=== PATIENT | female | born 1940 | race Caucasian/White ===

== ENCOUNTER 2017-02-01 11:56 | Day surgery (SDC) | payer OTHER ==
[~2017-02-01] VITALS: Ht 152.4 cm; Wt 59.9 kg
[2017-02-01] MEDS ORDERED: IOHEXOL 350 MG/ML 100 ML BTL (for Cath Lab) OTHER ONE (11:57)
[2017-02-01 12:50] VITALS: BP 196/79; PULSE 80; RESP 18; TEMP 98.8; O2SAT 92
[2017-02-01] MEDS ORDERED: EYEDRO EACH EYE (13:12)
[2017-02-01] MEDS ORDERED: LACTCAP8 PO (13:12)
[2017-02-01] MEDS ORDERED: TIZA4TAB PO (13:12)
[2017-02-01] MEDS ORDERED: MULTTAB67 PO (13:12)
[2017-02-01] MEDS ORDERED: CLON0.5T PO (13:12)
[2017-02-01] MEDS ORDERED: NITR0.4S SL (13:12)
[2017-02-01] MEDS ORDERED: GABA300C5 PO (13:12)
[2017-02-01] MEDS ORDERED: METO50TA PO (13:12)
[2017-02-01] MEDS ORDERED: BECL80AE3 INH (13:12)
[2017-02-01] MEDS ORDERED: PLAV75TA29 PO (13:12)
[2017-02-01] MEDS ORDERED: VITA500T4 PO (13:12)
[2017-02-01] MEDS ORDERED: VITA100036 PO (13:12)
[2017-02-01] MEDS ORDERED: DOXY1CAP74 PO (13:12)
[2017-02-01] MEDS ORDERED: ATOR1TAB18 PO (13:12)
[2017-02-01] MEDS ORDERED: SPIR25TA PO (13:12)
[2017-02-01] MEDS ORDERED: VENL75TA PO (13:12)
[2017-02-01] MEDS ORDERED: FENT50DI T-DERMAL (13:12)
[2017-02-01] MEDS ORDERED: ISOS30TA3 PO (13:12)
[2017-02-01] MEDS ORDERED: RANO500 PO (13:12)
[2017-02-01] MEDS ORDERED: PRED5TAB PO (13:12)
[2017-02-01] MEDS ORDERED: ESTR42.5V VAGINAL (13:12)
[2017-02-01] MEDS ORDERED: ASPI81TA5 PO (13:12)
[2017-02-01] MEDS ORDERED: LEFL20TA11 PO (13:12)
[2017-02-01] MEDS ORDERED: OXYC1CAP PO (13:12)
[2017-02-01] MEDS ORDERED: OCUVTAB PO (13:12)
[2017-02-01 13:13] LABS: AUTOMATED NEUTROPHIL # 7.9 TH/MM3 (1.8-7.7); BASOPHIL % 0.2 % (0.0-2.0); EOSINOPHIL % 0.5 % (0.0-4.0); HEMATOCRIT 35.5 % (35.0-46.0); HEMOGLOBIN 11.8 GM/DL (11.6-15.3); LYMPH % 7.7 % (9.0-44.0); LYMPHOCYTE # 0.7 TH/MM3 (1.0-4.8); MEAN CELL VOLUME 100.6 FL (80.0-100.0); MEAN CORPUSCULAR HEMOGLOBIN 33.5 PG (27.0-34.0); MEAN CORPUSCULAR HGB CONC 33.3 % (32.0-36.0); NEUT % 81.6 % (16.0-70.0); PLATELET COUNT 204 TH/MM3 (150-450); RED BLOOD COUNT 3.53 MIL/MM3 (4.00-5.30); RED CELL DISTRIBUTION WIDTH 15.1 % (11.6-17.2); WHITE BLOOD COUNT 9.6 TH/MM3 (4.0-11.0)
[2017-02-01 13:23] LABS: PROTHROMBIN TIME - PATIENT 11.3 SEC (9.8-11.6)
[2017-02-01 13:24] LABS: BICARBONATE 28.2 MEQ/L (21.0-32.0); CALCIUM 8.7 MG/DL (8.5-10.1); CREATININE 1.13 MG/DL (0.50-1.00)
[2017-02-01] MEDS ORDERED: NS 1000P @30 MLS/HR (KVO) IV SCH (13:30)
[2017-02-01] MEDS ORDERED: diphenhydrAMINE HCL 50 MG CAP PO SCH (13:30)
[2017-02-01] MEDS ORDERED: HEPARIN-NS/PF INJ 1,000 ML ONE (14:48)
[2017-02-01] MEDS ORDERED: MIDAZOLAM HCL 2 MG/2 ML VIAL ONE ×2 (14:49→16:57)
[2017-02-01] MEDS ORDERED: VERAPAMIL HCL 5 MG/2 ML VIAL ONE (14:49)
[2017-02-01] MEDS ORDERED: HEPARIN SODIUM - IV 10,000 UNITS/10 ML VIAL ONE (14:49)
[2017-02-01] MEDS ORDERED: NITROGLYCERIN INJ 0 ML ONE (14:50)
[2017-02-01] MEDS ORDERED: SODIUM CHLOR 0.9% 1000 ML INJ 1,000 ML IV SCH (16:34)
[2017-02-01] MEDS ORDERED: ATROPINE SULFATE 1 MG/ML VIAL IV PUSH PRN (16:45)
[2017-02-01] MEDS ORDERED: ONDANSETRON HCL 4 MG/2 ML VIAL IV PUSH PRN (16:45)
[2017-02-01] MEDS ORDERED: MISC INFORMATION XX ONE (16:45)
--- NOTE | 2017-02-01 17:21 | MA ---
cc: BAZANMannieMILAKURT Jonas DATE 02/01/2017 DATE OF 1940 PROCEDURES PERFORMED 1. Left heart catheterization. 2. Selective right and left coronary angiography. 3. Saphenous vein graft and YOUNGBLOOD angiography. 4. Left ventriculogram. 5. Left common femoral artery selective angiography. INDICATION Angina. Known coronary artery disease status post two vessel bypass. PROCEDURE DESCRIPTION Consent signed. The patient was prepped and draped in the usual sterile fashion. Using 1% lidocaine for local anesthesia and a micropuncture kit a 5 [place] sheath was inserted through the left common femoral artery. The left common femoral artery angiography was performed to confirm position of the sheath. Then selective right and left coronary angiography was performed with a JR-4 and a JL-4 diagnostic catheters. Angiography was taken in multiple views and the JR-4 diagnostic catheter was introduced to the ventricle over a wire. This was followed by pressure recordings, left ventriculogram and pullback. The saphenous vein grafts were engaged with a JR-4 diagnostic catheter. Angiography was performed in multiple views. The patient tolerated the procedure without complications. Estimated blood loss less than 20 cc. Total contrast 80 cc. The left groin access site was closed with VASCADE closure device. RESULTS Left ventricle. The left ventricular pressure was 245/9 with an elevated LVEDP of 12. The aortic pressure was 242/86 with an mean ____ pressure 156. There was no gradient upon pullback from the left ventricle to aorta. Left ventriculogram revealed a symmetrically edgar ventricle with an estimated ejection fraction of 45%. ANGIOGRAPHY 1. Right coronary artery. The right coronary artery is small and 100% occluded in its mid segment. It has a stent in its proximal segment with a in stent restenosis. The right coronary artery seemed to be a dominant vessel giving off circulation to the PDA. It is also giving RV branch. Right after the RV branch there is indeed a chronic total occlusion. 2. Left main is short and patent. It is giving off the left circumflex artery, the LAD and a small ramus vessel. 3. LAD. The LAD is a transapical vessel. It has a 70% proximal lesion and is completely occluded after that. It has been filling by coming from the YOUNGBLOOD. 4. The left circumflex artery has minimal luminal irregularities throughout and calcifications, however, patent. It is giving off two diagonal vessels and also circulation to the PDA. The first OM which is completely occluded right at the level of the stents. 5. Graft angiography. The YOUNGBLOOD to the LAD is patent. The SVG to OM is occluded. CONCLUSIONS Severe [place] vessel coronary artery disease with one of two grafts patent, the YOUNGBLOOD to the LAD. She does have severe [place] vessel coronary artery disease with a total occlusion of the right coronary artery and disease of two marginal branches of the circumflex. At this point I would opt with optimization of medical therapy. I will follow with cardiology. If the patient continues having chest pain symptoms, consider doing a stress test to further assess where she is getting the ischemia. If possible CT of the right coronary artery can be planned. RECOMMENDATIONS The patient will be going to the [facility] for post cath care. She will continue home medications and follow with Dr. Lu. The patient, if stable, after bed rest, she will be able to go home today. MD LISHA Dash/SUSAN /4:29 PM /4:36 PM
--- NOTE | 2017-02-01 17:23 | CATHPROC ---
[facility] HIS Report Study Information Study Number Admission Scheduled Start Study Start [id number] Feb 01 2017 11:56AM 02/01/2017 Feb 01 2017 3:31PM [facility] [facility] Cardiac Catheterization Admit Source Facility Department Other [facility] - [facility] Administrator Physician and Clinical Staff Initial MD Leonard, Fabricio International Controller Roxana Mac BSRArya Recorder Eduarda Angela,RT(R) Scrub Alex, Hortensia,EMBOSSING MACHINE OPERATOR TECH2 Procedures Performed Procedure Location (Site) Vessel Name Coronary Angiograms LCA Left Coronary Coronary Angiograms RCA Right Coronary Coronary Angiograms YOUNGBLOOD-LAD Left Coronary L Heart Cath LV Gram-hand inj. LV LV Ventricle Wire insertion Fem Art (left) Femoral Art Wire insertion Fem Art (right) Femoral Art Equipment Time Food Porter Description Size Mfg Part Number Used/Scraped TRANSDUCER, TRUWAVE [id number] 15:52 KELLER COOPER * Used W/BEN *[id number] 16:23 [address] MEDICAL VASCADE, FR5 CLOSURE SYSTEM FR 5 Used *[id number] INTRODUCER SET, 15:52 [employer] FR 5 [id number] *[id number] Used MICROPUNCTURE, STIFFENED [id number] *[id number] [id number] *[id number] [id number] *[id number] [id number] *[id number] WIRE, HYDROSTEER 150CM [id number] 16:02 DAIG[employer]. [employer] 150CM Used ANGLED GLIDE *[id number] 15:52 [employer] INDUSTRIES PACK, CCL CUSTOM * Used *[id number] 15:52 [employer] MEDICAL WIRE, 3MMJ .035 180CM 180CM Used *[id number] 15:52 [facility], 4 PORT * Used *[id number] 16:11 [employer] OMNIPAQUE, 350 MG, 150ML 150ML [id number] Used 15:52 [employer] OMNIPAQUE, 350 MG, 150ML 150ML [id number] Used [id number] 15:52 [employer]ARC[employer] MEDICAL BLANKET,WARM AIR CCL * Used *[id number] 15:52 [employer] MEDICAL SHEATH, FR5 TERUMO (10CM) FR 5 Used *[id number] History: Current Medications Medication Dosage/Unit Route Frequency Last Date/Time Taken ASA Statins (any) LOPRESSOR PLAVIX PREDNISONE History: Allergies Allergy Reaction Sulfa (Sulfonamide Antibiotics) History: Risk Factors Family History of Dyslipidemia Premature CAD Yes Yes Prior Valve Prior PCI Prior PCIDate Prior CABG Prior CABGDate Surgery No Yes 04/04/2002 Yes 04/04/2008 Chronic Lung Diabetes Disease Yes Yes History: Stress Tests Stress or Imaging Studies Performed No History: Other Disease Selection Items CAD COPD HTN History: MA/CV Data Previous Cath Date Previous CABG Date 04/04/2002 04/04/2008 History: Other Current Smoker Method Quit Packs a Day Years Used Pack Years No Cigarettes 1 Years Ago 1 40 40 Labs Hgb (g/dl) Hct (%) RBC (MIL/MM3) WBC (l/cumm) Platelets (thousands) 11.60-17.00 35.00-51.00 4.00-5.90 4.00-11.00 150.00-450.00 11.8 35.5 3.5 9.6 204 Glucose (mg/dl) BUN (mg/dl) Creatinine (mg/dl) BUN:Creatinine (1:x) 74.00-106.00 7.00-18.00 0.50-1.30 10.00-20.00 97 25 1.1 22.7 Na (meq/l) K (meq/l) Cl (meq/l) CO2 (mmol/L) Ca (mg/dl) 136.00-145.00 3.50-5.10 98.00-107.00 21.00-32.00 8.50-10.10 140 4.4 103 28.2 8.7 PT (sec) PTT (sec) INR (PTT:PT) 9.80-11.60 24.30-30.10 0.90-1.10 11.3 25.7 1 CPK-MB (ng/ML) 0.50-3.60 Not Drawn Medication Medication Total Dose (Bolus/Oral) Medication Total Dosage/Unit 1% XYLOCAINE 20 mL VERSED 0.5 mg Medications (Bolus/Oral) Medication Time Given Dosage/Unit Administered By Reason 1% XYLOCAINE 02/01/2017 3:49:23 PM 20 mL Fabricio Leonard 20 mL 1% XYLOCAINE given in lab by Fabricio Leonard in Left Groin via Subcutaneous. VERSED 02/01/2017 4:58:31 PM 0.5 mg Juárez-Cindy, Fabricio As per physicians verbal order 0.5 mg VERSED given in lab by Juárez-Cindy, Fabricio in Left Antecubital via Peripheral IV. Reason: As per physicians verbal order. Medication (Drip) Medication Time Given Dosage/Unit Concentration/Unit Diluent (ml) Solution IV Solutions 02/01/2017 3:35:01 PM 0 mL (IV) 500 NaCl .9 Patient arrived on IV Solutions in Left Antecubital via Peripheral IV. Pump/Drip Flow = 20 ml/hr usin g NaCl .9. Initial Case Assessment Cardiovascular HR Rhythm NIBP Chest Pain 93 reg 213/93 0 Edema Present Skin color Skin None Normal Warm Circulatory - Right Pulses Dorsalis Pedis Femoral 3 2 Scale (0,1,2,3,4,d) Circulatory - Left Pulses Dorsalis Pedis Femoral 3 3 Scale (0,1,2,3,4,d) Circulatory - Lower Extremities Color Lower Right Color Lower Left Normal Normal Neurological State Oriented to time-place- Alert Moves all extremities person Respiration - General Respiration Rate SpO2 (%) O2 (lpm) (B/min) 17 98 2 Final Case Assessment Cardiovascular HR Rhythm NIBP Chest Pain 87 reg 194/81 0 Edema Present Skin color Skin None Normal Warm Circulatory - Right Pulses Dorsalis Pedis Femoral 2 3 Scale (0,1,2,3,4,d) Circulatory - Left Pulses Dorsalis Pedis Femoral 2 2 Scale (0,1,2,3,4,d) Circulatory - Lower Extremities Color Lower Right Color Lower Left Normal Normal Neurological State Oriented to time-place- Alert Moves all extremities person Respiration - General Respiration Rate SpO2 (%) O2 (lpm) (B/min) 18 95 2 Chronological Log Time Study Chronological Log 15:20:51 Patient arrived via Bed. 15:21:56 Patient Name, D.O.B, / Armband Verified By R.N. 15:22:10 Consent signed by the physician and the patient and verified by the Net[employer] Administrator staff. 15:23:07 Pre-op and post- op instructions given; patient acknowledges understanding of instructions. 15:24:12 Verbal Stimulation=2 Physical Stimulation=2 Airway=2 Respiration=2 TOTAL=8. (0=absent, 1=li mited, 2=present) 15:26:19 Patient has been NPO for More than 6Hrs. 15:33:24 Skin Breakdown-0 15:33:34 Reference ECG taken Vitals capture started with the following parameters, Patient=Adult, Interval=2 min, Initial Pr ckejnn=871 mmHg, 15:33:36 Deflation Rate=5 mmHg, Cuff placed on right Arm 15:34:48 Patient Warmer Placed on the Table. 15:34:53 A # 20 IV was noted in the Antecubital (left). Grade = 0 15:35:01 Patient arrived on IV Solutions in Left Antecubital via Peripheral IV. Pump/Drip Flow = 20 ml/hr using NaCl .9. 15:35:21 History and physical on the chart or being dictated. Assessment: Initial Case, HR=93 BPM, Rhythm=reg, QNAC=066/93 mmhg, Chest Pain=0, Edema=None, Co eric=Normal, Skin = Warm Right Pulses: Hilario Ped=3, Femoral=2 Left Pulses: Hilario Ped=3, Femoral=3 15:35:24 Lower Right Extremities: Color=Normal Lower Left Extremities: Color=Normal Neurological: State=Alert, Ox3, KABA Respiration: Resp=17 B/min, SpO2=98 %, O2=2 lpm 15:35:30 HR=92 bpm, VJAD=721/93 mmhg, SpO2=97.0 %, Resp=15 B/min, Pain=0, Sophie=10, Gentile=2 15:35:57 NIBP STAT measurement started. 15:36:08 Pressure channel 1 zeroed. 15:36:46 HR=88 bpm, LDST=106/80 mmhg, SpO2=98.0 %, Resp=17 B/min, Pain=0, Sophie=10, Gentile=2 15:38:51 HR=87 bpm, UMFS=311/71 mmhg, SpO2=99.0 %, Resp=17 B/min, Pain=0, Sophie=10, Gentile=2 15:39:27 pt arrives with a fentanyl patch on right shoulder- 50 mcg 15:40:25 HR=88 bpm, TZCR=983/74 mmhg, SpO2=98.0 %, Resp=18 B/min, Pain=0, Sophie=10, Gentile=2 15:41:10 MD arrived. 15:41:14 Bilateral groins prepped with 2% chlorhexidine, and draped after a 3 minute waiting time. 15:42:26 HR=84 bpm, ZDJU=043/69 mmhg, SpO2=98.0 %, Resp=18 B/min, Pain=0, Sophie=10, Gentile=2 15:44:27 HR=83 bpm, PXQO=400/68 mmhg, SpO2=97.0 %, Resp=18 B/min, Pain=0, Sophie=10, Gentile=2 15:46:27 HR=81 bpm, OXXY=953/64 mmhg, SpO2=96.0 %, Resp=18 B/min, Pain=0, Sophie=10, Gentile=2 Time Out. Correct patient, correct procedure, correct physician, power injector not loaded with contrast with surgical 15:47:54 team present. Time Out Concurred by MD and individual staff in procedure. 15:48:16 Case Start 15:48:24 HR=87 bpm, OJSR=310/77 mmhg, SpO2=98.0 %, Resp=19 B/min, Pain=0, Sophie=10, Gentile=2 15:49:15 Verbal Stimulation=2 Physical Stimulation=2 Airway=2 Respiration=2 TOTAL=8. (0=absent, 1=li mited, 2=present) 15:49:23 20 mL 1% XYLOCAINE given in lab by Fabricio Leonard in Left Groin via Subcutaneous. 15:50:25 HR=86 bpm, LNMR=428/77 mmhg, SpO2=98.0 %, Resp=17 B/min, Pain=0, Sophie=10, Gentile=2 15:51:43 Access site was Left Femoral Artery. MP kit 15:51:58 A wire was inserted via Fem Art (right). 15:52:01 A SHEATH, FR5 TERUMO (10CM) FR 5 was advanced into the Fem Art (right) using the [place] us technique. 15:52:28 HR=86 bpm, LGAG=493/75 mmhg, SpO2=97.0 %, Resp=15 B/min, Pain=0, Sophie=10, Gentile=2 15:53:24 An injection in the Fem Art (right) was made through the SHEATH, FR5 TERUMO (10CM) FR 5. A JL 4.0 INFINITI CATHETER FR 5 was advanced over a wire. OMNIPAQUE, 350 MG, 150ML 150ML was us ed for 15:54:27 injections. Recorded Pressure: LV, HR=86, Condition=Condition 1 15:54:59 (Left Ventricle) LV 249/6/14 15:55:21 The LV was manually injected with 10 cc's and visualized. OMNIPAQUE, 350 MG, 150ML 150ML us ed. Recorded Pressure: LV, Ao, HR=90, Condition=Condition 1 15:55:34 (Left Ventricle) LV 245/9/12, (Aorta) Ao 240/75/147 15:55:55 HR=88 bpm, HRLX=376/84 mmhg, SpO2=97.0 %, Resp=20 B/min, Pain=0, Sophie=10, Gentile=2 15:56:02 The RCA was injected and visualized at various angles. OMNIPAQUE, 350 MG, 150ML 150ML used . Recorded Pressure: Ao, HR=96, Condition=Condition 1 15:56:11 (Aorta) Ao 242/86/156 15:57:13 HR=90 bpm, OLEZ=617/78 mmhg, SpO2=96.0 %, Resp=27 B/min, Pain=0, Sophie=10, Gentile=2 15:58:39 HR=88 bpm, QPZQ=507/77 mmhg, SpO2=96.0 %, Resp=15 B/min, Pain=0, Sophie=10, Gentile=2 16:00:44 HR=88 bpm, CMVX=362/72 mmhg, SpO2=95.0 %, Resp=18 B/min, Pain=0, Sophie=10, Gentile=2 16:00:47 A WIRE, 3MMJ .035 180CM 180CM was inserted via Fem Art (left). 16:01:34 The previous wire was exchanged for a WIRE, HYDROSTEER 150CM ANGLED GLIDE 150CM. 16:02:42 HR=87 bpm, HSYO=677/68 mmhg, SpO2=96.0 %, Resp=19 B/min, Pain=0, Sophie=10, Gentile=2 16:03:52 glide Wire removed 16:04:56 The YOUNGBLOOD-LAD was injected and visualized at various angles. OMNIPAQUE, 350 MG, 150ML 150ML used. 16:05:20 HR=84 bpm, LRVZ=512/77 mmhg, SpO2=97.0 %, Resp=17 B/min, Pain=0, Sophie=10, Gentile=2 16:06:10 Vitals capture stopped. Vitals capture started with the following parameters, Patient=Adult, Interval=2 min, Initial Pr pwtwdf=226 mmHg, 16:07:27 Deflation Rate=5 mmHg, Cuff placed on Left Arm 16:08:12 HR=90 bpm, QJYP=470/89 mmhg, SpO2=96.0 %, Resp=19 B/min, Pain=0, Sophie=10, Gentile=2 16:08:17 NIBP STAT measurement started. 16:08:34 The YOUNGBLOOD-LAD was injected and visualized at various angles. OMNIPAQUE, 350 MG, 150ML 150ML used. 16:08:45 A WIRE, 3MMJ .035 180CM 180CM was inserted via Fem Art (left). After removing the current catheter a JL 4.0 INFINITI CATHETER FR 5 was advanced over a WIRE, 3 MMJ .035 180CM 16:08:55 180CM. 16:08:57 HR=92 bpm, IZOK=057/92 mmhg, SpO2=94.0 %, Resp=27 B/min, Pain=0, Sophie=10, Gentile=2 16:10:13 HR=91 bpm, HOVS=752/81 mmhg, SpO2=93.0 %, Resp=20 B/min, Pain=0, Sophie=10, Gentile=2 16:10:21 The LCA was injected and visualized at various angles. OMNIPAQUE, 350 MG, 150ML 150ML used . 16:12:12 HR=96 bpm, OLBQ=170/82 mmhg, SpO2=94.0 %, Resp=23 B/min, Pain=0, Sophie=10, Gentile=2 After removing the current catheter a MPA-2 INFINITI CATHETER FR 5 was advanced over a WIRE, 3M MJ .035 180CM 16:12:23 180CM. 16:14:13 HR=92 bpm, YGKB=527/79 mmhg, SpO2=93.0 %, Resp=20 B/min, Pain=0, Sophie=10, Gentile=2 After removing the current catheter a AL 1 INFINITI CATHETER FR 5 was advanced over a WIRE, 3MM J .035 180CM 16:14:32 180CM. 16:16:13 HR=88 bpm, AHJQ=036/79 mmhg, SpO2=94.0 %, Resp=17 B/min, Pain=0, Sophie=10, Gentile=2 16:17:45 Catheter was removed 16:18:14 HR=90 bpm, WARO=175/72 mmhg, SpO2=93.0 %, Resp=18 B/min, Pain=0, Sophie=10, Gentile=2 16:20:13 HR=88 bpm, EIFL=822/80 mmhg, SpO2=93.0 %, Resp=19 B/min, Pain=0, Sophie=10, Gentile=2 16:21:38 Case End Assessment: Final Case, HR=87 BPM, Rhythm=reg, IBLW=992/81 mmhg, Chest Pain=0, Edema=None, [place] r=Normal, Skin = Warm Right Pulses: Hilario Ped=2, Femoral=3 Left Pulses: Hilario Ped=2, Femoral=2 16:21:46 Lower Right Extremities: Color=Normal Lower Left Extremities: Color=Normal Neurological: State=Alert, Ox3, KABA Respiration: Resp=18 B/min, SpO2=95 %, O2=2 lpm 16:22:16 HR=88 bpm, ODHS=648/81 mmhg, SpO2=93.0 %, Resp=20 B/min, Pain=0, Sophie=10, Gentile=2 16:22:32 Catheter(s) removed without difficulty 16:22:35 VASCADE, FR5 CLOSURE SYSTEM FR 5 placement in the Fem Art (left) 16:22:49 No case complications noted. 16:22:51 Cine recording checked. 16:22:52 Bedside Report will be given. 16:22:55 Contrast Scanned 16:22:57 A Left Heart Cath was performed. 16:23:03 Clinical correlaton risk stratification. 16:24:11 HR=90 bpm, OLDR=428/79 mmhg, SpO2=93.0 %, Resp=19 B/min, Pain=0, Sophie=10, Gentile=2 16:26:09 HR=89 bpm, SXOM=092/76 mmhg, SpO2=92.0 %, Resp=19 B/min, Pain=0, Sophie=10, Gentile=2 16:28:10 HR=89 bpm, EJUN=051/83 mmhg, SpO2=90.0 %, Resp=19 B/min, Pain=0, Sophie=10, Gentile=2 16:28:50 Hematoma noted Left groin, applying pressure. 16:30:09 HR=92 bpm, DOZY=962/86 mmhg, SpO2=91.0 %, Resp=14 B/min, Pain=0, Sophie=10, Gentile=2 16:32:08 HR=97 bpm, PCRS=039/97 mmhg, SpO2=90.0 %, Resp=15 B/min, Pain=0, Sophie=10, Gentile=2 16:34:11 HR=93 bpm, XZVC=852/95 mmhg, SpO2=89.0 %, Resp=20 B/min, Pain=0, Sophie=10, Gentile=2 16:36:16 HR=91 bpm, VZVL=243/87 mmhg, SpO2=90.0 %, Resp=17 B/min, Pain=0, Sophie=10, Gentile=2 16:38:19 HR=93 bpm, AJBZ=425/85 mmhg, SpO2=88.0 %, Resp=20 B/min, Pain=0, Sophie=10, Gentile=2 16:40:15 HR=99 bpm, ILFI=381/75 mmhg, SpO2=90.0 %, Resp=17 B/min, Pain=0, Sophie=10, Gentile=2 16:42:12 FV=268 bpm, WFNR=621/108 mmhg, SpO2=93.0 %, Resp=18 B/min, Pain=0, Sophie=10, Gentile=2 16:44:11 UD=854 bpm, JZUG=135/103 mmhg, SpO2=93.0 %, Resp=16 B/min, Pain=0, Sophie=10, Gentile=2 Vitals capture started with the following parameters, Patient=Adult, Interval=2 min, Initial Pr zzlydd=182 mmHg, 16:45:37 Deflation Rate=5 mmHg, Cuff placed on Left Arm 16:46:18 XT=558 bpm, XFCM=609/90 mmhg, SpO2=93.0 %, Resp=16 B/min, Pain=0, Sophie=10, Gentile=2 16:48:19 CC=099 bpm, QKND=749/74 mmhg, SpO2=92.0 %, Resp=18 B/min, Pain=0, Sophie=10, Gentile=2 16:50:15 QZ=989 bpm, GCII=066/56 mmhg, SpO2=89.0 %, Resp=20 B/min, Pain=0, Sophie=10, Gentile=2 16:52:08 YC=132 bpm, VWTG=907/62 mmhg, SpO2=91.0 %, Resp=21 B/min, Pain=0, Sophie=10, Gentile=2 16:54:11 YT=888 bpm, TQDF=766/44 mmhg, SpO2=93.0 %, Resp=21 B/min, Pain=0, Sophie=10, Gentile=2 16:56:08 RL=498 bpm, TTNU=152/69 mmhg, SpO2=92.0 %, Resp=13 B/min, Pain=0, Sophie=10, Gentile=2 0.5 mg VERSED given in lab by Fabricio Leonard in Left Antecubital via Peripheral IV. Reason: As per physicians 16:58:31 verbal order. 16:58:45 MF=771 bpm, NTWE=264/60 mmhg, SpO2=96.0 %, Resp=13 B/min, Pain=0, Sophie=10, Gentile=2 17:00:13 YJ=971 bpm, WIWO=528/61 mmhg, SpO2=96.0 %, Resp=21 B/min, Pain=0, Sophie=10, Gentile=2 17:02:14 DU=576 bpm, AJIP=878/72 mmhg, SpO2=95.0 %, Resp=19 B/min, Pain=0, Sophie=10, Gentile=2 17:04:13 DR=618 bpm, XSSB=502/57 mmhg, SpO2=95.0 %, Resp=26 B/min, Pain=0, Sophie=10, Gentile=2 17:04:13 ultrasound LLE 17:06:14 FF=212 bpm, NIBP=95/54 mmhg, SpO2=95.0 %, Resp=17 B/min, Pain=0, Sophie=10, Gentile=2 17:09:47 HY=643 bpm, UQXU=088/72 mmhg, SpO2=96.0 %, Resp=21 B/min 17:10:40 Dr. Juárez examining pt. 17:11:21 QK=193 bpm, JOAN=486/68 mmhg, SpO2=96.0 %, Resp=21 B/min 17:12:30 NIBP STAT measurement started. 17:13:08 BF=234 bpm, NJDD=238/40 mmhg, Resp=20 B/min 17:13:10 Vitals capture stopped. Vitals capture started with the following parameters, Patient=Adult, Interval=2 min, Initial Pr tgkmqj=426 mmHg, 17:15:34 Deflation Rate=5 mmHg, Cuff placed on Left Arm 17:16:08 ZO=182 bpm, AGWV=998/72 mmhg, SpO2=94.0 %, Resp=16 B/min 17:18:11 KG=889 bpm, TGGF=559/77 mmhg, SpO2=96.0 %, Resp=17 B/min, Pain=0, Sophie=10, Gentile=2 17:20:16 HR=99 bpm, WYJK=139/63 mmhg, SpO2=83.0 %, Resp=22 B/min, Pain=0, Sophie=10, Gentile=2 17:22:49 HR=98 bpm, EYLG=569/74 mmhg, Resp=20 B/min, Pain=0, Sophie=10, Gentile=2 17:23:14 Vitals capture stopped. 17:23:14 [facility] 17[facility] pt transported to room End Study - Contrast Media Used In Study Contrast Total Opened (mL) Total Used (mL) Total Wasted (mL) Omnipaque 80 80 0 End Study - Maximum Contrast Load Max Contrast Load (mL) 272.3 End Study - Radiation Exposure Fluoro Time (minutes) 13.8 End Study - Sheaths Sheaths Pulled By Sheath Hold Time (min) Hortensia Johnson 5 End Study - Patient Disposition Complications Transferred To Interventional Outcome No Outpatient Bed No attempt made
--- NOTE | 2017-02-01 17:23 | CATHPROC ---
[employer] HIS Report Study Information Study Number Admission Scheduled Start Study Start [id number] Feb 01 2017 11:56AM 02/01/2017 Feb 01 2017 3:31PM [place] Service Cardiac Catheterization Admit Source Facility Department Other [facility] - Inventory Control Associate Physician and Clinical Staff Initial MD Leonard, Fabricio Electronic Equipment Installer Roxana Mac BSRArya Recorder Eduarda Angela,RT(R) Scrub Alex, Hortensia,FUNERAL HOME ASSISTANT TECH2 Procedures Performed Procedure Location (Site) Vessel Name Coronary Angiograms LCA Left Coronary Coronary Angiograms RCA Right Coronary Coronary Angiograms YOUNGBLOOD-LAD Left Coronary L Heart Cath LV Gram-hand inj. LV LV Ventricle Wire insertion Fem Art (left) Femoral Art Wire insertion Fem Art (right) Femoral Art Equipment Time Relay Tester Helper Description Size Mfg Part Number Used/Scraped TRANSDUCER, TRUWAVE [id number] 15:52 KELLER COOPER * Used W/BEN *[id number] 16:23 [employer] Institute[employer] MEDICAL VASCADE, FR5 CLOSURE SYSTEM FR 5 Used *[id number] INTRODUCER SET, 15:52 [employer] FR 5 [id number] *[id number] Used MICROPUNCTURE, STIFFENED [id number] *[id number] 534-520T *[id number] 534-521T *[id number] 534-542T *[id number] WIRE, HYDROSTEER 150CM [id number] 16:02 DAIG/ST. CURLY MEDICAL 150CM Used ANGLED GLIDE *[id number] 15:52 [employer] IND[employer]RIES PACK, CCL CUSTOM * Used *[id number] 15:52 [employer] MEDICAL WIRE, 3MMJ .035 180CM 180CM Used *[id number] 15:52 [facility]S [facility]ITALIC MANIFOLD, 4 PORT * Used *[id number] 16:11 NYCOMED OMNIPAQUE, 350 MG, 150ML 150ML [id number] Used 15:52 NYCOMED OMNIPAQUE, 350 MG, 150ML 150ML [id number] Used [id number] 15:52 GARCIA MEDICAL BLANKET,WARM AIR CCL * Used *[id number] 15:52 TERUMO MEDICAL SHEATH, FR5 TERUMO (10CM) FR 5 Used *[id number] History: Current Medications Medication Dosage/Unit Route Frequency Last Date/Time Taken ASA Statins (any) LOPRESSOR PLAVIX PREDNISONE History: Allergies Allergy Reaction Sulfa (Sulfonamide Antibiotics) History: Risk Factors Family History of Dyslipidemia Premature CAD Yes Yes Prior Valve Prior PCI Prior PCIDate Prior CABG Prior CABGDate Surgery No Yes 04/04/2002 Yes 04/04/2008 Chronic Lung Diabetes Disease Yes Yes History: Stress Tests Stress or Imaging Studies Performed No History: Other Disease Selection Items CAD COPD HTN History: [place]/CV Data Previous Cath Date Previous CABG Date 04/04/2002 04/04/2008 History: Other Current Smoker Method Quit Packs a Day Years Used Pack Years No Cigarettes 1 Years Ago 1 40 40 Labs Hgb (g/dl) Hct (%) RBC (MIL/MM3) WBC (l/cumm) Platelets (thousands) 11.60-17.00 35.00-51.00 4.00-5.90 4.00-11.00 150.00-450.00 11.8 35.5 3.5 9.6 204 Glucose (mg/dl) BUN (mg/dl) Creatinine (mg/dl) BUN:Creatinine (1:x) 74.00-106.00 7.00-18.00 0.50-1.30 10.00-20.00 97 25 1.1 22.7 Na (meq/l) K (meq/l) Cl (meq/l) CO2 (mmol/L) Ca (mg/dl) 136.00-145.00 3.50-5.10 98.00-107.00 21.00-32.00 8.50-10.10 140 4.4 103 28.2 8.7 PT (sec) PTT (sec) INR (PTT:PT) 9.80-11.60 24.30-30.10 0.90-1.10 11.3 25.7 1 CPK-MB (ng/ML) 0.50-3.60 Not Drawn Medication Medication Total Dose (Bolus/Oral) Medication Total Dosage/Unit 1% XYLOCAINE 20 mL VERSED 0.5 mg Medications (Bolus/Oral) Medication Time Given Dosage/Unit Administered By Reason 1% XYLOCAINE 02/01/2017 3:49:23 PM 20 mL Fabricio Leonard 20 mL 1% XYLOCAINE given in lab by Fabricio Leonard in Left Groin via Subcutaneous. VERSED 02/01/2017 4:58:31 PM 0.5 mg Juárez-Cindy, Fabricio As per physicians verbal order 0.5 mg VERSED given in lab by Juárez-Cindy, Fabricio in Left Antecubital via Peripheral IV. Reason: As per physicians verbal order. Medication (Drip) Medication Time Given Dosage/Unit Concentration/Unit Diluent (ml) Solution IV Solutions 02/01/2017 3:35:01 PM 0 mL (IV) 500 NaCl .9 Patient arrived on IV Solutions in Left Antecubital via Peripheral IV. Pump/Drip Flow = 20 ml/hr usin g NaCl .9. Initial Case Assessment Cardiovascular HR Rhythm NIBP Chest Pain 93 reg 213/93 0 Edema Present Skin color Skin None Normal Warm Circulatory - Right Pulses Dorsalis Pedis Femoral 3 2 Scale (0,1,2,3,4,d) Circulatory - Left Pulses Dorsalis Pedis Femoral 3 3 Scale (0,1,2,3,4,d) Circulatory - Lower Extremities Color Lower Right Color Lower Left Normal Normal Neurological State Oriented to time-place- Alert Moves all extremities person Respiration - General Respiration Rate SpO2 (%) O2 (lpm) (B/min) 17 98 2 Final Case Assessment Cardiovascular HR Rhythm NIBP Chest Pain 87 reg 194/81 0 Edema Present Skin color Skin None Normal Warm Circulatory - Right Pulses Dorsalis Pedis Femoral 2 3 Scale (0,1,2,3,4,d) Circulatory - Left Pulses Dorsalis Pedis Femoral 2 2 Scale (0,1,2,3,4,d) Circulatory - Lower Extremities Color Lower Right Color Lower Left Normal Normal Neurological State Oriented to time-place- Alert Moves all extremities person Respiration - General Respiration Rate SpO2 (%) O2 (lpm) (B/min) 18 95 2 Chronological Log Time Study Chronological Log 15:20:51 Patient arrived via Bed. 15:21:56 Patient Name, D.O.B, / Armband Verified By R.N. 15:22:10 Consent signed by the physician and the patient and verified by the Inventory Control Associate staff. 15:23:07 Pre-op and post- op instructions given; patient acknowledges understanding of instructions. 15:24:12 Verbal Stimulation=2 Physical Stimulation=2 Airway=2 Respiration=2 TOTAL=8. (0=absent, 1=li mited, 2=present) 15:26:19 Patient has been NPO for More than 6Hrs. 15:33:24 Skin Breakdown-0 15:33:34 Reference ECG taken Vitals capture started with the following parameters, Patient=Adult, Interval=2 min, Initial Pr ccsufx=515 mmHg, 15:33:36 Deflation Rate=5 mmHg, Cuff placed on right Arm 15:34:48 Patient Warmer Placed on the Table. 15:34:53 A # 20 IV was noted in the Antecubital (left). Grade = 0 15:35:01 Patient arrived on IV Solutions in Left Antecubital via Peripheral IV. Pump/Drip Flow = 20 ml/hr using NaCl .9. 15:35:21 History and physical on the chart or being dictated. Assessment: Initial Case, HR=93 BPM, Rhythm=reg, GWIP=665/93 mmhg, Chest Pain=0, Edema=None, Co eric=Normal, Skin = Warm Right Pulses: Hilario Ped=3, Femoral=2 Left Pulses: Hilario Ped=3, Femoral=3 15:35:24 Lower Right Extremities: Color=Normal Lower Left Extremities: Color=Normal Neurological: State=Alert, Ox3, KABA Respiration: Resp=17 B/min, SpO2=98 %, O2=2 lpm 15:35:30 HR=92 bpm, MPHZ=714/93 mmhg, SpO2=97.0 %, Resp=15 B/min, Pain=0, Sophie=10, Gentile=2 15:35:57 NIBP STAT measurement started. 15:36:08 Pressure channel 1 zeroed. 15:36:46 HR=88 bpm, WDRY=889/80 mmhg, SpO2=98.0 %, Resp=17 B/min, Pain=0, Sophie=10, Gentile=2 15:38:51 HR=87 bpm, GJYT=914/71 mmhg, SpO2=99.0 %, Resp=17 B/min, Pain=0, Sophie=10, Gentile=2 15:39:27 pt arrives with a fentanyl patch on right shoulder- 50 mcg 15:40:25 HR=88 bpm, BOZN=162/74 mmhg, SpO2=98.0 %, Resp=18 B/min, Pain=0, Sophie=10, Gentile=2 15:41:10 MD arrived. 15:41:14 Bilateral groins prepped with 2% chlorhexidine, and draped after a 3 minute waiting time. 15:42:26 HR=84 bpm, XBHG=694/69 mmhg, SpO2=98.0 %, Resp=18 B/min, Pain=0, Sophie=10, Gentile=2 15:44:27 HR=83 bpm, OHFY=244/68 mmhg, SpO2=97.0 %, Resp=18 B/min, Pain=0, Sophie=10, Gentile=2 15:46:27 HR=81 bpm, YXGD=299/64 mmhg, SpO2=96.0 %, Resp=18 B/min, Pain=0, Sophie=10, Gentile=2 Time Out. Correct patient, correct procedure, correct physician, power injector not loaded with contrast with surgical 15:47:54 team present. Time Out Concurred by MD and individual staff in procedure. 15:48:16 Case Start 15:48:24 HR=87 bpm, IYDI=660/77 mmhg, SpO2=98.0 %, Resp=19 B/min, Pain=0, Sophie=10, Gentile=2 15:49:15 Verbal Stimulation=2 Physical Stimulation=2 Airway=2 Respiration=2 TOTAL=8. (0=absent, 1=li mited, 2=present) 15:49:23 20 mL 1% XYLOCAINE given in lab by Fabricio Leonard in Left Groin via Subcutaneous. 15:50:25 HR=86 bpm, QBJU=506/77 mmhg, SpO2=98.0 %, Resp=17 B/min, Pain=0, Sophie=10, Gentile=2 15:51:43 Access site was Left Femoral Artery. MP kit 15:51:58 A wire was inserted via Fem Art (right). 15:52:01 A SHEATH, FR5 TERUMO (10CM) FR 5 was advanced into the Fem Art (right) using the [place] us technique. 15:52:28 HR=86 bpm, USEW=092/75 mmhg, SpO2=97.0 %, Resp=15 B/min, Pain=0, Sophie=10, Gentile=2 15:53:24 An injection in the Fem Art (right) was made through the SHEATH, FR5 TERUMO (10CM) FR 5. A JL 4.0 INFINITI CATHETER FR 5 was advanced over a wire. OMNIPAQUE, 350 MG, 150ML 150ML was us ed for 15:54:27 injections. Recorded Pressure: LV, HR=86, Condition=Condition 1 15:54:59 (Left Ventricle) LV 249/6/14 15:55:21 The LV was manually injected with 10 cc's and visualized. OMNIPAQUE, 350 MG, 150ML 150ML us ed. Recorded Pressure: LV, Ao, HR=90, Condition=Condition 1 15:55:34 (Left Ventricle) LV 245/9/12, (Aorta) Ao 240/75/147 15:55:55 HR=88 bpm, DEGT=485/84 mmhg, SpO2=97.0 %, Resp=20 B/min, Pain=0, Sophie=10, Gentile=2 15:56:02 The RCA was injected and visualized at various angles. OMNIPAQUE, 350 MG, 150ML 150ML used . Recorded Pressure: Ao, HR=96, Condition=Condition 1 15:56:11 (Aorta) Ao 242/86/156 15:57:13 HR=90 bpm, BTGF=076/78 mmhg, SpO2=96.0 %, Resp=27 B/min, Pain=0, Sophie=10, Gentile=2 15:58:39 HR=88 bpm, AFGO=774/77 mmhg, SpO2=96.0 %, Resp=15 B/min, Pain=0, Sophie=10, Gentile=2 16:00:44 HR=88 bpm, HZZA=956/72 mmhg, SpO2=95.0 %, Resp=18 B/min, Pain=0, Sophie=10, Gentile=2 16:00:47 A WIRE, 3MMJ .035 180CM 180CM was inserted via Fem Art (left). 16:01:34 The previous wire was exchanged for a WIRE, HYDROSTEER 150CM ANGLED GLIDE 150CM. 16:02:42 HR=87 bpm, RYJZ=948/68 mmhg, SpO2=96.0 %, Resp=19 B/min, Pain=0, Sophie=10, Gentile=2 16:03:52 glide Wire removed 16:04:56 The YOUNGBLOOD-LAD was injected and visualized at various angles. OMNIPAQUE, 350 MG, 150ML 150ML used. 16:05:20 HR=84 bpm, PJGQ=352/77 mmhg, SpO2=97.0 %, Resp=17 B/min, Pain=0, Sophie=10, Gentile=2 16:06:10 Vitals capture stopped. Vitals capture started with the following parameters, Patient=Adult, Interval=2 min, Initial Pr huxpch=713 mmHg, 16:07:27 Deflation Rate=5 mmHg, Cuff placed on Left Arm 16:08:12 HR=90 bpm, IGKO=397/89 mmhg, SpO2=96.0 %, Resp=19 B/min, Pain=0, Sophie=10, Gentile=2 16:08:17 NIBP STAT measurement started. 16:08:34 The YOUNGBLOOD-LAD was injected and visualized at various angles. OMNIPAQUE, 350 MG, 150ML 150ML used. 16:08:45 A WIRE, 3MMJ .035 180CM 180CM was inserted via Fem Art (left). After removing the current catheter a JL 4.0 INFINITI CATHETER FR 5 was advanced over a WIRE, 3 MMJ .035 180CM 16:08:55 180CM. 16:08:57 HR=92 bpm, DUHR=466/92 mmhg, SpO2=94.0 %, Resp=27 B/min, Pain=0, Sophie=10, Gentile=2 16:10:13 HR=91 bpm, LGRB=870/81 mmhg, SpO2=93.0 %, Resp=20 B/min, Pain=0, Sophie=10, Gentile=2 16:10:21 The LCA was injected and visualized at various angles. OMNIPAQUE, 350 MG, 150ML 150ML used . 16:12:12 HR=96 bpm, IYXW=689/82 mmhg, SpO2=94.0 %, Resp=23 B/min, Pain=0, Sophie=10, Gentile=2 After removing the current catheter a MPA-2 INFINITI CATHETER FR 5 was advanced over a WIRE, 3M MJ .035 180CM 16:12:23 180CM. 16:14:13 HR=92 bpm, CRRB=753/79 mmhg, SpO2=93.0 %, Resp=20 B/min, Pain=0, Sophie=10, Gentile=2 After removing the current catheter a AL 1 INFINITI CATHETER FR 5 was advanced over a WIRE, 3MM J .035 180CM 16:14:32 180CM. 16:16:13 HR=88 bpm, UINJ=385/79 mmhg, SpO2=94.0 %, Resp=17 B/min, Pain=0, Sophie=10, Gentile=2 16:17:45 Catheter was removed 16:18:14 HR=90 bpm, IHOU=922/72 mmhg, SpO2=93.0 %, Resp=18 B/min, Pain=0, Sophie=10, Gentile=2 16:20:13 HR=88 bpm, RKHM=845/80 mmhg, SpO2=93.0 %, Resp=19 B/min, Pain=0, Sophie=10, Gentile=2 16:21:38 Case End Assessment: Final Case, HR=87 BPM, Rhythm=reg, AJQX=229/81 mmhg, Chest Pain=0, Edema=None, [place] r=Normal, Skin = Warm Right Pulses: Hilario Ped=2, Femoral=3 Left Pulses: Hilario Ped=2, Femoral=2 16:21:46 Lower Right Extremities: Color=Normal Lower Left Extremities: Color=Normal Neurological: State=Alert, Ox3, KABA Respiration: Resp=18 B/min, SpO2=95 %, O2=2 lpm 16:22:16 HR=88 bpm, PGVM=656/81 mmhg, SpO2=93.0 %, Resp=20 B/min, Pain=0, Sophie=10, Gentile=2 16:22:32 Catheter(s) removed without difficulty 16:22:35 VASCADE, FR5 CLOSURE SYSTEM FR 5 placement in the Fem Art (left) 16:22:49 No case complications noted. 16:22:51 Cine recording checked. 16:22:52 Bedside Report will be given. 16:22:55 Contrast Scanned 16:22:57 A Left Heart Cath was performed. 16:23:03 Clinical correlaton risk stratification. 16:24:11 HR=90 bpm, SUNY=718/79 mmhg, SpO2=93.0 %, Resp=19 B/min, Pain=0, Sophie=10, Gentile=2 16:26:09 HR=89 bpm, KNCW=466/76 mmhg, SpO2=92.0 %, Resp=19 B/min, Pain=0, Sophie=10, Gentile=2 16:28:10 HR=89 bpm, DLTL=498/83 mmhg, SpO2=90.0 %, Resp=19 B/min, Pain=0, Sophie=10, Gentile=2 16:28:50 Hematoma noted Left groin, applying pressure. 16:30:09 HR=92 bpm, PWKD=040/86 mmhg, SpO2=91.0 %, Resp=14 B/min, Pain=0, Sophie=10, Gentile=2 16:32:08 HR=97 bpm, LDZI=072/97 mmhg, SpO2=90.0 %, Resp=15 B/min, Pain=0, Sophie=10, Gentile=2 16:34:11 HR=93 bpm, SBAZ=197/95 mmhg, SpO2=89.0 %, Resp=20 B/min, Pain=0, Sophie=10, Gentile=2 16:36:16 HR=91 bpm, VWZN=705/87 mmhg, SpO2=90.0 %, Resp=17 B/min, Pain=0, Sophie=10, Gentile=2 16:38:19 HR=93 bpm, VIEW=552/85 mmhg, SpO2=88.0 %, Resp=20 B/min, Pain=0, Sophie=10, Gentile=2 16:40:15 HR=99 bpm, JZCP=587/75 mmhg, SpO2=90.0 %, Resp=17 B/min, Pain=0, Sophie=10, Gentile=2 16:42:12 ZX=466 bpm, QQJB=912/108 mmhg, SpO2=93.0 %, Resp=18 B/min, Pain=0, Sophie=10, Gentile=2 16:44:11 BE=090 bpm, WRUM=118/103 mmhg, SpO2=93.0 %, Resp=16 B/min, Pain=0, Sophie=10, Gentile=2 Vitals capture started with the following parameters, Patient=Adult, Interval=2 min, Initial Pr mijeoq=877 mmHg, 16:45:37 Deflation Rate=5 mmHg, Cuff placed on Left Arm 16:46:18 WH=355 bpm, NQIH=040/90 mmhg, SpO2=93.0 %, Resp=16 B/min, Pain=0, Sophie=10, Gentile=2 16:48:19 YO=037 bpm, AJQO=081/74 mmhg, SpO2=92.0 %, Resp=18 B/min, Pain=0, Sophie=10, Gentile=2 16:50:15 LO=144 bpm, RFKV=997/56 mmhg, SpO2=89.0 %, Resp=20 B/min, Pain=0, Sophie=10, Gentile=2 16:52:08 OH=469 bpm, LJMX=057/62 mmhg, SpO2=91.0 %, Resp=21 B/min, Pain=0, Sophie=10, Gentile=2 16:54:11 XD=593 bpm, BCUF=974/44 mmhg, SpO2=93.0 %, Resp=21 B/min, Pain=0, Sophie=10, Gentile=2 16:56:08 ZD=199 bpm, FXXF=941/69 mmhg, SpO2=92.0 %, Resp=13 B/min, Pain=0, Sophie=10, Gentile=2 0.5 mg VERSED given in lab by Fabricio Leonard in Left Antecubital via Peripheral IV. Reason: As per physicians 16:58:31 verbal order. 16:58:45 KY=185 bpm, CJTC=763/60 mmhg, SpO2=96.0 %, Resp=13 B/min, Pain=0, Sophie=10, Gentile=2 17:00:13 KD=242 bpm, FDKG=626/61 mmhg, SpO2=96.0 %, Resp=21 B/min, Pain=0, Sophie=10, Gentile=2 17:02:14 KJ=830 bpm, OJPG=023/72 mmhg, SpO2=95.0 %, Resp=19 B/min, Pain=0, Sophie=10, Gentile=2 17:04:13 DZ=903 bpm, XGBA=394/57 mmhg, SpO2=95.0 %, Resp=26 B/min, Pain=0, Sophie=10, Gentile=2 17:04:13 ultrasound LLE 17:06:14 FV=445 bpm, NIBP=95/54 mmhg, SpO2=95.0 %, Resp=17 B/min, Pain=0, Sophie=10, Gentile=2 17:09:47 PO=727 bpm, RHKO=599/72 mmhg, SpO2=96.0 %, Resp=21 B/min 17:10:40 Dr. Juárez examining pt. 17:11:21 DE=922 bpm, PJXK=170/68 mmhg, SpO2=96.0 %, Resp=21 B/min 17:12:30 NIBP STAT measurement started. 17:13:08 YL=978 bpm, VUVD=284/40 mmhg, Resp=20 B/min 17:13:10 Vitals capture stopped. Vitals capture started with the following parameters, Patient=Adult, Interval=2 min, Initial Pr lpxusb=648 mmHg, 17:15:34 Deflation Rate=5 mmHg, Cuff placed on Left Arm 17:16:08 HL=607 bpm, NGJJ=215/72 mmhg, SpO2=94.0 %, Resp=16 B/min 17:18:11 FJ=046 bpm, MEGM=391/77 mmhg, SpO2=96.0 %, Resp=17 B/min, Pain=0, Sophie=10, Gentile=2 17:20:16 HR=99 bpm, XMAX=576/63 mmhg, SpO2=83.0 %, Resp=22 B/min, Pain=0, Sophie=10, Gentile=2 17:22:49 HR=98 bpm, OFDG=791/74 mmhg, Resp=20 B/min, Pain=0, Sophie=10, Gentile=2 17:23:14 Vitals capture stopped. 17:23:14 [facility] pt transported to room End Study - Contrast Media Used In Study Contrast Total Opened (mL) Total Used (mL) Total Wasted (mL) Omnipaque 80 80 0 End Study - Maximum Contrast Load Max Contrast Load (mL) 272.3 End Study - Radiation Exposure Fluoro Time (minutes) 13.8 End Study - Sheaths Sheaths Pulled By Sheath Hold Time (min) Hortensia Johnson 5 End Study - Patient Disposition Complications Transferred To Interventional Outcome No Outpatient Bed No attempt made
--- NOTE | 2017-02-01 17:23 | CATHPROC ---
[employer] HIS Report Study Information Study Number Admission Scheduled Start Study Start [id number] Feb 01 2017 11:56AM 02/01/2017 Feb 01 2017 3:31PM [place] [facility] Cardiac Catheterization Admit Source Facility Department Other [facility] - Pulper Operator Physician and Clinical Staff Initial MD Leonard, Fabricio Sugar Refiner Roxana Mac BSRArya Recorder Eduarda Angela,RT(R) Scrub Alex, Hortensia,PILE DRIVING SETTER TECH2 Procedures Performed Procedure Location (Site) Vessel Name Coronary Angiograms LCA Left Coronary Coronary Angiograms RCA Right Coronary Coronary Angiograms YOUNGBLOOD-LAD Left Coronary L Heart Cath LV Gram-hand inj. LV LV Ventricle Wire insertion Fem Art (left) Femoral Art Wire insertion Fem Art (right) Femoral Art Equipment Time Wrapper Sheeter Description Size Mfg Part Number Used/Scraped TRANSDUCER, TRUWAVE [id number] 15:52 KELLER COOPER * Used W/BEN *[id number] 16:23 WaveSyndicateVA MEDICAL VASCADE, FR5 CLOSURE SYSTEM FR 5 Used *[id number] INTRODUCER SET, 15:52 [employer] FR 5 [id number] *[id number] Used MICROPUNCTURE, STIFFENED [id number] *[id number] 534-520T *[id number] [id number] *[id number] [id number] *[id number] WIRE, HYDROSTEER 150CM [id number] 16:02 DAIG/ST. CURLY MEDICAL 150CM Used ANGLED GLIDE *[id number] 15:52 [employer] PACK, CCL CUSTOM * Used *[id number] 15:52 [employer] MEDICAL WIRE, 3MMJ .035 180CM 180CM Used *[id number] 15:52 [facility] MANIFOLD, 4 PORT * Used *[id number] 16:11 NYCOMED OMNIPAQUE, 350 MG, 150ML 150ML [id number] Used 15:52 NYCOMED OMNIPAQUE, 350 MG, 150ML 150ML [id number] Used [id number] 15:52 GARCIA MEDICAL BLANKET,WARM AIR CCL * Used *[id number] 15:52 TERUMO MEDICAL SHEATH, FR5 TERUMO (10CM) FR 5 Used *[id number] History: Current Medications Medication Dosage/Unit Route Frequency Last Date/Time Taken ASA Statins (any) LOPRESSOR PLAVIX PREDNISONE History: Allergies Allergy Reaction Sulfa (Sulfonamide Antibiotics) History: Risk Factors Family History of Dyslipidemia Premature CAD Yes Yes Prior Valve Prior PCI Prior PCIDate Prior CABG Prior CABGDate Surgery No Yes 04/04/2002 Yes 04/04/2008 Chronic Lung Diabetes Disease Yes Yes History: Stress Tests Stress or Imaging Studies Performed No History: Other Disease Selection Items CAD COPD HTN History: [place]/CV Data Previous Cath Date Previous CABG Date 04/04/2002 04/04/2008 History: Other Current Smoker Method Quit Packs a Day Years Used Pack Years No Cigarettes 1 Years Ago 1 40 40 Labs Hgb (g/dl) Hct (%) RBC (MIL/MM3) WBC (l/cumm) Platelets (thousands) 11.60-17.00 35.00-51.00 4.00-5.90 4.00-11.00 150.00-450.00 11.8 35.5 3.5 9.6 204 Glucose (mg/dl) BUN (mg/dl) Creatinine (mg/dl) BUN:Creatinine (1:x) 74.00-106.00 7.00-18.00 0.50-1.30 10.00-20.00 97 25 1.1 22.7 Na (meq/l) K (meq/l) Cl (meq/l) CO2 (mmol/L) Ca (mg/dl) 136.00-145.00 3.50-5.10 98.00-107.00 21.00-32.00 8.50-10.10 140 4.4 103 28.2 8.7 PT (sec) PTT (sec) INR (PTT:PT) 9.80-11.60 24.30-30.10 0.90-1.10 11.3 25.7 1 CPK-MB (ng/ML) 0.50-3.60 Not Drawn Medication Medication Total Dose (Bolus/Oral) Medication Total Dosage/Unit 1% XYLOCAINE 20 mL VERSED 0.5 mg Medications (Bolus/Oral) Medication Time Given Dosage/Unit Administered By Reason 1% XYLOCAINE 02/01/2017 3:49:23 PM 20 mL Fabricio Leonard 20 mL 1% XYLOCAINE given in lab by Fabricio Leonard in Left Groin via Subcutaneous. VERSED 02/01/2017 4:58:31 PM 0.5 mg Juárez-Cindy, Fabricio As per physicians verbal order 0.5 mg VERSED given in lab by Juárez-Cindy, Fabricio in Left Antecubital via Peripheral IV. Reason: As per physicians verbal order. Medication (Drip) Medication Time Given Dosage/Unit Concentration/Unit Diluent (ml) Solution IV Solutions 02/01/2017 3:35:01 PM 0 mL (IV) 500 NaCl .9 Patient arrived on IV Solutions in Left Antecubital via Peripheral IV. Pump/Drip Flow = 20 ml/hr usin g NaCl .9. Initial Case Assessment Cardiovascular HR Rhythm NIBP Chest Pain 93 reg 213/93 0 Edema Present Skin color Skin None Normal Warm Circulatory - Right Pulses Dorsalis Pedis Femoral 3 2 Scale (0,1,2,3,4,d) Circulatory - Left Pulses Dorsalis Pedis Femoral 3 3 Scale (0,1,2,3,4,d) Circulatory - Lower Extremities Color Lower Right Color Lower Left Normal Normal Neurological State Oriented to time-place- Alert Moves all extremities person Respiration - General Respiration Rate SpO2 (%) O2 (lpm) (B/min) 17 98 2 Final Case Assessment Cardiovascular HR Rhythm NIBP Chest Pain 87 reg 194/81 0 Edema Present Skin color Skin None Normal Warm Circulatory - Right Pulses Dorsalis Pedis Femoral 2 3 Scale (0,1,2,3,4,d) Circulatory - Left Pulses Dorsalis Pedis Femoral 2 2 Scale (0,1,2,3,4,d) Circulatory - Lower Extremities Color Lower Right Color Lower Left Normal Normal Neurological State Oriented to time-place- Alert Moves all extremities person Respiration - General Respiration Rate SpO2 (%) O2 (lpm) (B/min) 18 95 2 Chronological Log Time Study Chronological Log 15:20:51 Patient arrived via Bed. 15:21:56 Patient Name, D.O.B, / Armband Verified By R.N. 15:22:10 Consent signed by the physician and the patient and verified by the Pulper Operator staff. 15:23:07 Pre-op and post- op instructions given; patient acknowledges understanding of instructions. 15:24:12 Verbal Stimulation=2 Physical Stimulation=2 Airway=2 Respiration=2 TOTAL=8. (0=absent, 1=li mited, 2=present) 15:26:19 Patient has been NPO for More than 6Hrs. 15:33:24 Skin Breakdown-0 15:33:34 Reference ECG taken Vitals capture started with the following parameters, Patient=Adult, Interval=2 min, Initial Pr thjqld=209 mmHg, 15:33:36 Deflation Rate=5 mmHg, Cuff placed on right Arm 15:34:48 Patient Warmer Placed on the Table. 15:34:53 A # 20 IV was noted in the Antecubital (left). Grade = 0 15:35:01 Patient arrived on IV Solutions in Left Antecubital via Peripheral IV. Pump/Drip Flow = 20 ml/hr using NaCl .9. 15:35:21 History and physical on the chart or being dictated. Assessment: Initial Case, HR=93 BPM, Rhythm=reg, CMVK=815/93 mmhg, Chest Pain=0, Edema=None, Co eric=Normal, Skin = Warm Right Pulses: Hilario Ped=3, Femoral=2 Left Pulses: Hilario Ped=3, Femoral=3 15:35:24 Lower Right Extremities: Color=Normal Lower Left Extremities: Color=Normal Neurological: State=Alert, Ox3, KABA Respiration: Resp=17 B/min, SpO2=98 %, O2=2 lpm 15:35:30 HR=92 bpm, MVKR=017/93 mmhg, SpO2=97.0 %, Resp=15 B/min, Pain=0, Sophie=10, Gentile=2 15:35:57 NIBP STAT measurement started. 15:36:08 Pressure channel 1 zeroed. 15:36:46 HR=88 bpm, QQFH=994/80 mmhg, SpO2=98.0 %, Resp=17 B/min, Pain=0, Sophie=10, Gentile=2 15:38:51 HR=87 bpm, QGTH=364/71 mmhg, SpO2=99.0 %, Resp=17 B/min, Pain=0, Sophie=10, Gentile=2 15:39:27 pt arrives with a fentanyl patch on right shoulder- 50 mcg 15:40:25 HR=88 bpm, FLBL=583/74 mmhg, SpO2=98.0 %, Resp=18 B/min, Pain=0, Sophie=10, Gentile=2 15:41:10 MD arrived. 15:41:14 Bilateral groins prepped with 2% chlorhexidine, and draped after a 3 minute waiting time. 15:42:26 HR=84 bpm, QHAY=536/69 mmhg, SpO2=98.0 %, Resp=18 B/min, Pain=0, Sophie=10, Gentile=2 15:44:27 HR=83 bpm, PKAI=187/68 mmhg, SpO2=97.0 %, Resp=18 B/min, Pain=0, Sophie=10, Gentile=2 15:46:27 HR=81 bpm, YPFC=300/64 mmhg, SpO2=96.0 %, Resp=18 B/min, Pain=0, Sophie=10, Gentile=2 Time Out. Correct patient, correct procedure, correct physician, power injector not loaded with contrast with surgical 15:47:54 team present. Time Out Concurred by MD and individual staff in procedure. 15:48:16 Case Start 15:48:24 HR=87 bpm, FXOS=456/77 mmhg, SpO2=98.0 %, Resp=19 B/min, Pain=0, Sophie=10, Gentile=2 15:49:15 Verbal Stimulation=2 Physical Stimulation=2 Airway=2 Respiration=2 TOTAL=8. (0=absent, 1=li mited, 2=present) 15:49:23 20 mL 1% XYLOCAINE given in lab by Fabricio Leonard in Left Groin via Subcutaneous. 15:50:25 HR=86 bpm, FXXH=116/77 mmhg, SpO2=98.0 %, Resp=17 B/min, Pain=0, Sophie=10, Gentile=2 15:51:43 Access site was Left Femoral Artery. MP kit 15:51:58 A wire was inserted via Fem Art (right). 15:52:01 A SHEATH, FR5 TERUMO (10CM) FR 5 was advanced into the Fem Art (right) using the Percut[place]o us technique. 15:52:28 HR=86 bpm, ADQF=680/75 mmhg, SpO2=97.0 %, Resp=15 B/min, Pain=0, Sophie=10, Gentile=2 15:53:24 An injection in the Fem Art (right) was made through the SHEATH, FR5 TERUMO (10CM) FR 5. A JL 4.0 INFINITI CATHETER FR 5 was advanced over a wire. OMNIPAQUE, 350 MG, 150ML 150ML was us ed for 15:54:27 injections. Recorded Pressure: LV, HR=86, Condition=Condition 1 15:54:59 (Left Ventricle) LV 249/6/14 15:55:21 The LV was manually injected with 10 cc's and visualized. OMNIPAQUE, 350 MG, 150ML 150ML us ed. Recorded Pressure: LV, Ao, HR=90, Condition=Condition 1 15:55:34 (Left Ventricle) LV 245/9/12, (Aorta) Ao 240/75/147 15:55:55 HR=88 bpm, FGQR=133/84 mmhg, SpO2=97.0 %, Resp=20 B/min, Pain=0, Sophie=10, Gentile=2 15:56:02 The RCA was injected and visualized at various angles. OMNIPAQUE, 350 MG, 150ML 150ML used . Recorded Pressure: Ao, HR=96, Condition=Condition 1 15:56:11 (Aorta) Ao 242/86/156 15:57:13 HR=90 bpm, OJJD=810/78 mmhg, SpO2=96.0 %, Resp=27 B/min, Pain=0, Sophie=10, Gentile=2 15:58:39 HR=88 bpm, PEDT=870/77 mmhg, SpO2=96.0 %, Resp=15 B/min, Pain=0, Sophie=10, Gentile=2 16:00:44 HR=88 bpm, EXOX=246/72 mmhg, SpO2=95.0 %, Resp=18 B/min, Pain=0, Sophie=10, Gentile=2 16:00:47 A WIRE, 3MMJ .035 180CM 180CM was inserted via Fem Art (left). 16:01:34 The previous wire was exchanged for a WIRE, HYDROSTEER 150CM ANGLED GLIDE 150CM. 16:02:42 HR=87 bpm, PQJY=210/68 mmhg, SpO2=96.0 %, Resp=19 B/min, Pain=0, Sophie=10, Gentile=2 16:03:52 glide Wire removed 16:04:56 The YOUNGBLOOD-LAD was injected and visualized at various angles. OMNIPAQUE, 350 MG, 150ML 150ML used. 16:05:20 HR=84 bpm, ZFLC=245/77 mmhg, SpO2=97.0 %, Resp=17 B/min, Pain=0, Sophie=10, Gentile=2 16:06:10 Vitals capture stopped. Vitals capture started with the following parameters, Patient=Adult, Interval=2 min, Initial Pr kyhfup=103 mmHg, 16:07:27 Deflation Rate=5 mmHg, Cuff placed on Left Arm 16:08:12 HR=90 bpm, SPOR=909/89 mmhg, SpO2=96.0 %, Resp=19 B/min, Pain=0, Sophie=10, Gentile=2 16:08:17 NIBP STAT measurement started. 16:08:34 The YOUNGBLOOD-LAD was injected and visualized at various angles. OMNIPAQUE, 350 MG, 150ML 150ML used. 16:08:45 A WIRE, 3MMJ .035 180CM 180CM was inserted via Fem Art (left). After removing the current catheter a JL 4.0 INFINITI CATHETER FR 5 was advanced over a WIRE, 3 MMJ .035 180CM 16:08:55 180CM. 16:08:57 HR=92 bpm, PBFF=759/92 mmhg, SpO2=94.0 %, Resp=27 B/min, Pain=0, Sophie=10, Gentile=2 16:10:13 HR=91 bpm, TOFV=910/81 mmhg, SpO2=93.0 %, Resp=20 B/min, Pain=0, Sophie=10, Gentile=2 16:10:21 The LCA was injected and visualized at various angles. OMNIPAQUE, 350 MG, 150ML 150ML used . 16:12:12 HR=96 bpm, WXZW=481/82 mmhg, SpO2=94.0 %, Resp=23 B/min, Pain=0, Sophie=10, Gentile=2 After removing the current catheter a MPA-2 INFINITI CATHETER FR 5 was advanced over a WIRE, 3M MJ .035 180CM 16:12:23 180CM. 16:14:13 HR=92 bpm, YPJI=257/79 mmhg, SpO2=93.0 %, Resp=20 B/min, Pain=0, Sophie=10, Gentile=2 After removing the current catheter a AL 1 INFINITI CATHETER FR 5 was advanced over a WIRE, 3MM J .035 180CM 16:14:32 180CM. 16:16:13 HR=88 bpm, ORNP=888/79 mmhg, SpO2=94.0 %, Resp=17 B/min, Pain=0, Sophie=10, Gentile=2 16:17:45 Catheter was removed 16:18:14 HR=90 bpm, JOBD=500/72 mmhg, SpO2=93.0 %, Resp=18 B/min, Pain=0, Sophie=10, Gentile=2 16:20:13 HR=88 bpm, ZKUP=904/80 mmhg, SpO2=93.0 %, Resp=19 B/min, Pain=0, Sophie=10, Gentile=2 16:21:38 Case End Assessment: Final Case, HR=87 BPM, Rhythm=reg, ZEXF=744/81 mmhg, Chest Pain=0, Edema=None, Watson r=Normal, Skin = Warm Right Pulses: Hilario Ped=2, Femoral=3 Left Pulses: Hilario Ped=2, Femoral=2 16:21:46 Lower Right Extremities: Color=Normal Lower Left Extremities: Color=Normal Neurological: State=Alert, Ox3, KABA Respiration: Resp=18 B/min, SpO2=95 %, O2=2 lpm 16:22:16 HR=88 bpm, QBBM=452/81 mmhg, SpO2=93.0 %, Resp=20 B/min, Pain=0, Sophie=10, Gentile=2 16:22:32 Catheter(s) removed without difficulty 16:22:35 VASCADE, FR5 CLOSURE SYSTEM FR 5 placement in the Fem Art (left) 16:22:49 No case complications noted. 16:22:51 Cine recording checked. 16:22:52 Bedside Report will be given. 16:22:55 Contrast Scanned 16:22:57 A Left Heart Cath was performed. 16:23:03 Clinical correlaton risk stratification. 16:24:11 HR=90 bpm, AAIR=094/79 mmhg, SpO2=93.0 %, Resp=19 B/min, Pain=0, Sophie=10, Gentile=2 16:26:09 HR=89 bpm, OWUX=416/76 mmhg, SpO2=92.0 %, Resp=19 B/min, Pain=0, Sophie=10, Gentile=2 16:28:10 HR=89 bpm, XHCB=520/83 mmhg, SpO2=90.0 %, Resp=19 B/min, Pain=0, Sophie=10, Gentile=2 16:28:50 Hematoma noted Left groin, applying pressure. 16:30:09 HR=92 bpm, CRKB=371/86 mmhg, SpO2=91.0 %, Resp=14 B/min, Pain=0, Sophie=10, Gentile=2 16:32:08 HR=97 bpm, LDOE=269/97 mmhg, SpO2=90.0 %, Resp=15 B/min, Pain=0, Sophie=10, Gentile=2 16:34:11 HR=93 bpm, OIOH=415/95 mmhg, SpO2=89.0 %, Resp=20 B/min, Pain=0, Sophie=10, Gentile=2 16:36:16 HR=91 bpm, ZPJL=893/87 mmhg, SpO2=90.0 %, Resp=17 B/min, Pain=0, Sophie=10, Gentile=2 16:38:19 HR=93 bpm, DQKL=060/85 mmhg, SpO2=88.0 %, Resp=20 B/min, Pain=0, Sophie=10, Gentile=2 16:40:15 HR=99 bpm, QHWH=941/75 mmhg, SpO2=90.0 %, Resp=17 B/min, Pain=0, Sophie=10, Gentile=2 16:42:12 JX=573 bpm, JQIB=127/108 mmhg, SpO2=93.0 %, Resp=18 B/min, Pain=0, Sophie=10, Gentile=2 16:44:11 DW=855 bpm, RVSE=590/103 mmhg, SpO2=93.0 %, Resp=16 B/min, Pain=0, Sophie=10, Gentile=2 Vitals capture started with the following parameters, Patient=Adult, Interval=2 min, Initial Pr lpzgdj=034 mmHg, 16:45:37 Deflation Rate=5 mmHg, Cuff placed on Left Arm 16:46:18 BZ=574 bpm, JHVO=380/90 mmhg, SpO2=93.0 %, Resp=16 B/min, Pain=0, Sophie=10, Gentile=2 16:48:19 ST=037 bpm, VJOJ=854/74 mmhg, SpO2=92.0 %, Resp=18 B/min, Pain=0, Sophie=10, Gentile=2 16:50:15 GO=121 bpm, ZPZM=928/56 mmhg, SpO2=89.0 %, Resp=20 B/min, Pain=0, Sophie=10, Gentile=2 16:52:08 SE=444 bpm, JBVA=889/62 mmhg, SpO2=91.0 %, Resp=21 B/min, Pain=0, Sophie=10, Gentile=2 16:54:11 BA=208 bpm, HLIV=837/44 mmhg, SpO2=93.0 %, Resp=21 B/min, Pain=0, Sophie=10, Gentile=2 16:56:08 HK=281 bpm, TRJL=712/69 mmhg, SpO2=92.0 %, Resp=13 B/min, Pain=0, Sophie=10, Gentile=2 0.5 mg VERSED given in lab by Fabricio Leonard in Left Antecubital via Peripheral IV. Reason: As per physicians 16:58:31 verbal order. 16:58:45 VR=069 bpm, FNAO=664/60 mmhg, SpO2=96.0 %, Resp=13 B/min, Pain=0, Sophie=10, Gentile=2 17:00:13 NY=813 bpm, EGID=949/61 mmhg, SpO2=96.0 %, Resp=21 B/min, Pain=0, Sophie=10, Gentile=2 17:02:14 XF=628 bpm, IEOS=624/72 mmhg, SpO2=95.0 %, Resp=19 B/min, Pain=0, Sophie=10, Gentile=2 17:04:13 DI=509 bpm, ZKEY=407/57 mmhg, SpO2=95.0 %, Resp=26 B/min, Pain=0, Sophie=10, Gentile=2 17:04:13 ultrasound LLE 17:06:14 FA=062 bpm, NIBP=95/54 mmhg, SpO2=95.0 %, Resp=17 B/min, Pain=0, Sophie=10, Gentile=2 17:09:47 GI=454 bpm, CLOV=016/72 mmhg, SpO2=96.0 %, Resp=21 B/min 17:10:40 Dr. Juárez examining pt. 17:11:21 CF=925 bpm, ZNTX=491/68 mmhg, SpO2=96.0 %, Resp=21 B/min 17:12:30 NIBP STAT measurement started. 17:13:08 RD=133 bpm, MXXO=220/40 mmhg, Resp=20 B/min 17:13:10 Vitals capture stopped. Vitals capture started with the following parameters, Patient=Adult, Interval=2 min, Initial Pr aqcpas=707 mmHg, 17:15:34 Deflation Rate=5 mmHg, Cuff placed on Left Arm 17:16:08 WG=572 bpm, ESGC=363/72 mmhg, SpO2=94.0 %, Resp=16 B/min 17:18:11 UW=916 bpm, VMGB=113/77 mmhg, SpO2=96.0 %, Resp=17 B/min, Pain=0, Sophie=10, Gentile=2 17:20:16 HR=99 bpm, ZETE=497/63 mmhg, SpO2=83.0 %, Resp=22 B/min, Pain=0, Sophie=10, Gentile=2 17:22:49 HR=98 bpm, UKPG=453/74 mmhg, Resp=20 B/min, Pain=0, Sophie=10, Gentile=2 17:23:14 Vitals capture stopped. 17:23:[facility] to room End Study - Contrast Media Used In Study Contrast Total Opened (mL) Total Used (mL) Total Wasted (mL) Omnipaque 80 80 0 End Study - Maximum Contrast Load Max Contrast Load (mL) 272.3 End Study - Radiation Exposure Fluoro Time (minutes) 13.8 End Study - Sheaths Sheaths Pulled By Sheath Hold Time (min) Hortensia Johnson 5 End Study - Patient Disposition Complications Transferred To Interventional Outcome No Outpatient Bed No attempt made
[2017-02-01 17:36] LABS: HEMATOCRIT 32.6 % (35.0-46.0); HEMOGLOBIN 10.9 GM/DL (11.6-15.3)
--- NOTE | 2017-02-01 21:14 | EKG ---
Date Performed: 02/01/2017 Time Performed: 13:06:36 PTAGE: 76 years EKG: Sinus rhythm Short WA interval Incomplete right bundle branch block Anteroseptal Q waves Lateral ST-T changes Abn ormal ECG NO PREVIOUS TRACING DOCTOR: Maris Jovel Interpretating Date/Time 02/01/2017 21:12:39
--- NOTE | 2017-02-01 21:14 | EKG ---
Date Performed: 02/01/2017 Time Performed: 13:06:36 PTAGE: 76 years EKG: Sinus rhythm Short WI interval Incomplete right bundle branch block Anteroseptal Q waves Lateral ST-T changes Abn ormal ECG NO PREVIOUS TRACING DOCTOR: Maris Jovel Interpretating Date/Time 02/01/2017 21:12:39
--- NOTE | 2017-02-01 21:14 | EKG ---
Date Performed: 02/01/2017 Time Performed: 13:06:36 PTAGE: 76 years EKG: Sinus rhythm Short NV interval Incomplete right bundle branch block Anteroseptal Q waves Lateral ST-T changes Abn ormal ECG NO PREVIOUS TRACING DOCTOR: Maris Jovel Interpretating Date/Time 02/01/2017 21:12:39
== END 2017-02-01 20:09 | disposition home or self-care (01) ==
LOC: HDOC 11:56 → HDIC 11:57 → HDOC 20:09
PROVIDERS: ATTEND Radiology Vascular & Interventional Radiology
DX: I25.110 Atherosclerotic heart disease of native coronary artery with unstable angina pectoris (principal); I10 Essential (primary) hypertension; R94.31 Abnormal electrocardiogram [ECG] [EKG]; J44.9 Chronic obstructive pulmonary disease, unspecified; I73.9 Peripheral vascular disease, unspecified; E78.5 Hyperlipidemia, unspecified; I34.0 Nonrheumatic mitral (valve) insufficiency; Z95.1 Presence of aortocoronary bypass graft
CPT/HCPCS: 80048; 85014; 85018; 85025; 85610; 85730; 93005; 93459; C1760; C1769; C1893; G0269; J1644; J2250; J3010; Q0163; Q9967